=== PATIENT | male | born 1945 | race Caucasian/White ===

== ENCOUNTER 2021-09-15 10:06 | Outpatient (CLI) | payer MEDICARE ==
[2021-09-15] MEDS ORDERED: Iopamidol 370 76% 100 ML VIAL ONE (13:42)
== END 2021-09-15 10:07 | disposition home or self-care (01) ==
LOC: CT 10:06
PROVIDERS: ATTEND Urology
DX: C61 Malignant neoplasm of prostate (principal); K57.30 Diverticulosis of large intestine without perforation or abscess without bleeding; K40.20 Bilateral inguinal hernia, without obstruction or gangrene, not specified as recurrent; N13.2 Hydronephrosis with renal and ureteral calculous obstruction
CPT/HCPCS: 74178; 78306; 82565; A9503

== ENCOUNTER 2021-10-01 23:48 | Observation (INO) | payer MEDICARE, SELFPAY ==
[2021-10-02 00:36] LABS: #Eosinphils 0.2 thou/uL (0.0-0.7); #Lymphocytes 1.4 thou/uL (1.20-3.40); #Monocytes 0.4 thou/uL (0.11-0.59); #Neutrophils 4.2 thou/uL (1.40-6.50); %Basophils 0.6 % (0.0-1.0); %Eosinophils 2.5 % (0.0-10.0); %Lymphocytes 22.7 % (21.0-51.0); %Monocytes 6.6 % (0.0-10.0); %Neutrophils 67.6 % (42.0-75.0); Hemoglobin 13.2 g/dL (14.0-18.0); Mean Corpuscular HGB CONC 33.8 g/dL (32.0-36.0); Mean Corpuscular Hemoglobin 31.1 pg (27.0-31.0); Mean Platelet Volume 6.2 fL (7.4-10.4); Platelet Count 263 thou/uL (130-400); RBC Distribution Width 13.1 % (11.5-14.5); Red Blood Cell (RBC) Count 4.24 mill/uL (4.70-6.10); White Blood Cell (WBC) Count 6.2 thou/uL (4.8-10.8)
[2021-10-02 00:56] LABS: ALT (SGPT) 12 U/L (8-55); AST (SGOT) 16 U/L (5-34); Albumin 3.8 g/dL (3.4-4.8); Alkaline Phosphatase 82 U/L (40-110); Anion Gap 12 mmol/L (10-20); BUN (Urea Nitrogen) 14 mg/dL (8.4-25.7); Bilirubin, Total 0.4 mg/dL (0.2-1.2); CK (CPK) 55 U/L (30-200); Calc. Creatinine Clearance 0 mL/min (70-130); Calcium 9.5 mg/dL (7.8-10.44); Carbon Dioxide 27 mmol/L (23-31); Chloride 103 mmol/L (98-107); Globulin 2.8 g/dL (2.4-3.5); Glucose 109 mg/dL (83-110); Potassium 3.8 mmol/L (3.5-5.1); Protein, Total 6.6 g/dL (5.8-8.1); Sodium 138 mmol/L (136-145)
[2021-10-02] MEDS ORDERED: Aspirin Chewable 81 MG TAB ONE (01:22)
[2021-10-02] MEDS ORDERED: cloNIDine 0.1 MG TAB ONE (01:22)
[2021-10-02] MEDS ORDERED: Senokot S 8.6-50 MG TAB PO PRN (02:12)
[2021-10-02] MEDS ORDERED: Acetaminophen 325 MG TAB PO PRN (02:12)
[2021-10-02] MEDS ORDERED: Bisacodyl 5 MG TAB PO PRN (02:12)
[2021-10-02] MEDS ORDERED: Bisacodyl 10 MG SUPP PR PRN (02:12)
[2021-10-02] MEDS ORDERED: Acetaminophen 650 MG Suppository PR PRN (02:12)
[2021-10-02] MEDS ORDERED: Calcium Carbonate 500 MG ChewTAB PO PRN (02:12)
[2021-10-02 02:34] VITALS: BMI 27.7
[2021-10-02] MEDS ORDERED: Labetalol HCl 100 MG/20 ML VIAL SLOW IVP PRN (03:16)
[2021-10-02] MEDS ORDERED: hydrALAZINE 20 MG/ML VIAL SLOW IVP PRN (03:16)
[2021-10-02 04:36] LABS: #Lymphocytes 1.3 thou/uL (1.20-3.40); #Monocytes 0.7 thou/uL (0.11-0.59); #Neutrophils 6.9 thou/uL (1.40-6.50); %Basophils 0.2 % (0.0-1.0); %Eosinophils 0.5 % (0.0-10.0); %Lymphocytes 14.6 % (21.0-51.0); %Monocytes 7.3 % (0.0-10.0); %Neutrophils 77.4 % (42.0-75.0); Hemoglobin 12.8 g/dL (14.0-18.0); Mean Corpuscular HGB CONC 34.3 g/dL (32.0-36.0); Mean Corpuscular Hemoglobin 31.2 pg (27.0-31.0); Mean Platelet Volume 6.3 fL (7.4-10.4); Platelet Count 253 thou/uL (130-400); Red Blood Cell (RBC) Count 4.09 mill/uL (4.70-6.10)
[2021-10-02 04:49] LABS: Hemoglobin A1c 4.5 % (4.0-6.0)
[2021-10-02 04:51] LABS: Cardiac Risk 2.6 (Less than 4.5)
[2021-10-02 05:00] LABS: Troponin I 0.012 ng/mL (< 0.028)
[2021-10-02 07:34] VITALS: TEMP 97.9
[2021-10-02 08:20] LABS: Troponin I Less than 0.010 ng/mL (< 0.028)
[2021-10-02] MEDS ORDERED: Enoxaparin Sodium 40 MG/0.4 ML SYRINGE SC SCH (09:00)
[2021-10-02] MEDS ORDERED: ADENOSINE 60 MG/20 ML VIAL ONE (10:31)
[2021-10-02 13:12] VITALS: BP 110/66
[2021-10-02 17:14] LABS: SARS-CoV-2 PCR by NAA Not Detected (NotDetected)
[2021-10-02] MEDS ORDERED: AMOXICILLIN 875 MG PO SCH (21:00)
[2021-10-02] MEDS ORDERED: Amoxicillin/Potassium Clav 875 MG TAB PO SCH (21:00)
[2021-10-02] MEDS ORDERED: Lisinopril 10 MG TAB PO SCH (21:00)
[2021-10-02] MEDS ORDERED: Ferrous Sulfate 325 MG TAB PO SCH (21:00)
[2021-10-02] MEDS ORDERED: Tamsulosin HCl 0.4 MG CAP PO SCH (21:00)
[2021-10-02] MEDS ORDERED: Atorvastatin Calcium 10 MG TAB PO SCH (21:00)
[2021-10-03] MEDS ORDERED: Losartan 25 MG TAB PO SCH (21:00)
== END 2021-10-02 13:55 | disposition home or self-care (01) ==
LOC: ERS 23:48 → 2SW 10-02 01:35
PROVIDERS: ADMIT Emergency Medicine; ATTEND Emergency Medicine
DX: I20.0 Unstable angina (principal); N39.0 Urinary tract infection, site not specified; I10 Essential (primary) hypertension; C61 Malignant neoplasm of prostate; Z87.891 Personal history of nicotine dependence; Z66 Do not resuscitate; Z79.2 Long term (current) use of antibiotics; Z79.899 Other long term (current) drug therapy; Z20.822 Contact with and (suspected) exposure to COVID-19
CPT/HCPCS: 71045; 78452; 80061; 82550; 83036; 84484 ×2; 93005; 93017; 99285; A9500; U0003; U0005; 36415; 80053; 84443; 85025; G0378; J0153

== ENCOUNTER 2021-11-06 07:39 | Outpatient (CLI) | payer MEDICARE | END 2021-11-06 07:40 | disposition home or self-care (01) | LOC: ULT 07:39 | PROVIDERS: ATTEND Urology | DX: C61 Malignant neoplasm of prostate (principal); N13.39 Other hydronephrosis; N32.89 Other specified disorders of bladder | CPT/HCPCS: 76770 ==

== ENCOUNTER 2021-11-06 12:00 | Outpatient (CLI) | payer MEDICARE ==
[2021-11-06 13:34] LABS: Mean Corpuscular HGB CONC 32.4 g/dL (32.0-36.0); Mean Corpuscular Hemoglobin 29.5 pg (27.0-33.0); Mean Corpuscular Volume 91.1 fl (81.2-95.1); Platelet Count 257 10x3/uL (150-450); RBC Distribution Width 13.5 % (11.5-14.5); White Blood Cell (WBC) Count 7.3 10x3/uL (3.5-10.5)
[2021-11-06 13:49] LABS: INR-International Normal Ratio 0.9; Prothrombin Time 10.5 sec (9.5-12.1)
[2021-11-06 13:57] LABS: Anion Gap 15 mmol/L (10-20); BUN (Urea Nitrogen) 13 mg/dL (8.4-25.7); Calc. Creatinine Clearance 0 mL/min (70-130); Calcium 9.4 mg/dL (7.8-10.44); Carbon Dioxide 26 mmol/L (23-31); Chloride 104 mmol/L (98-107); Glucose 89 mg/dL (83-110); Sodium 141 mmol/L (136-145)
[2021-11-07 12:10] LABS: SARS-CoV-2 PCR by NAA Not Detected (NotDetected)
== END 2021-11-06 12:01 | disposition home or self-care (01) ==
LOC: LABBT 12:00
PROVIDERS: ATTEND Urology
DX: Z01.812 Encounter for preprocedural laboratory examination (principal); C61 Malignant neoplasm of prostate; R97.20 Elevated prostate specific antigen [PSA]; R35.0 Frequency of micturition; N40.1 Benign prostatic hyperplasia with lower urinary tract symptoms; K64.4 Residual hemorrhoidal skin tags; R63.4 Abnormal weight loss; R33.9 Retention of urine, unspecified; Q54.0 Hypospadias, balanic; K63.89 Other specified diseases of intestine; N13.39 Other hydronephrosis; Z20.822 Contact with and (suspected) exposure to COVID-19; Z87.891 Personal history of nicotine dependence; N32.89 Other specified disorders of bladder
CPT/HCPCS: 76770; 80048; 85027; 85610; 85730; U0003; U0005

== ENCOUNTER 2022-02-03 12:55 | Outpatient (CLI) | payer MEDICARE | END 2022-02-03 12:56 | disposition home or self-care (01) | LOC: BICULT 12:55 | PROVIDERS: ATTEND Urology | DX: C61 Malignant neoplasm of prostate (principal); N13.39 Other hydronephrosis; N32.89 Other specified disorders of bladder | CPT/HCPCS: 36415; 76770; 80048; 81003; 84153 ==

== ENCOUNTER 2022-02-22 11:23 | Observation (INO) | payer MEDICARE ==
[2022-02-22] MEDS ORDERED: Metoprolol Tartrate 5 MG/5 ML VIAL ONE (12:31)
[2022-02-22] MEDS ORDERED: Nitroglycerin 2% Ointment 1 INCH/1 GM Packet ONE ×2 (12:31→15:29)
[2022-02-22] MEDS ORDERED: Aspirin Chewable 81 MG TAB ONE (12:31)
[2022-02-22] MEDS ORDERED: Nitroglycerin 0.4 MG TAB 1 EACH ONE (12:31)
[2022-02-22 12:37] LABS: #Lymphocytes 1.1 thou/uL (1.20-3.40); #Neutrophils 7.3 thou/uL (1.40-6.50); %Eosinophils 0.1 % (0.0-10.0); %Lymphocytes 11.5 % (21.0-51.0); %Monocytes 10.6 % (0.0-10.0); %Neutrophils 77.8 % (42.0-75.0); Hemoglobin 15.3 g/dL (14.0-18.0); Mean Corpuscular HGB CONC 33.8 g/dL (32.0-36.0); Mean Corpuscular Hemoglobin 32.2 pg (27.0-31.0); Mean Corpuscular Volume 95.2 fL (78.0-98.0); Mean Platelet Volume 6.4 fL (7.4-10.4); Platelet Count 203 thou/uL (130-400); RBC Distribution Width 11.9 % (11.5-14.5); Red Blood Cell (RBC) Count 4.76 mill/uL (4.70-6.10); White Blood Cell (WBC) Count 9.4 thou/uL (4.8-10.8)
[2022-02-22 13:07] LABS: ALT (SGPT) 9 U/L (8-55); AST (SGOT) 12 U/L (5-34); Albumin 4.4 g/dL (3.4-4.8); Alkaline Phosphatase 85 U/L (40-110); Anion Gap 13 mmol/L (10-20); BUN (Urea Nitrogen) 10 mg/dL (8.4-25.7); Bilirubin, Total 1.4 mg/dL (0.2-1.2); Calc. Creatinine Clearance 0 mL/min (70-130); Calcium 10.1 mg/dL (7.8-10.44); Carbon Dioxide 30 mmol/L (23-31); Chloride 100 mmol/L (98-107); Globulin 3.4 g/dL (2.4-3.5); Glucose 113 mg/dL (83-110); Lipase 8 U/L (8-78); Potassium 4.3 mmol/L (3.5-5.1); Protein, Total 7.8 g/dL (5.8-8.1); Sodium 139 mmol/L (136-145)
[2022-02-22] MEDS ORDERED: hydrALAZINE 20 MG/ML VIAL ONE (14:12)
[2022-02-22] MEDS ORDERED: Acetaminophen 325 MG TAB PO PRN (15:11)
[2022-02-22] MEDS ORDERED: Ondansetron ODT 4 MG TAB PO PRN (15:11)
[2022-02-22] MEDS ORDERED: hydrALAZINE 20 MG/ML VIAL SLOW IVP PRN (15:19)
[2022-02-22 15:46] LABS: Troponin I Less than 0.010 ng/mL (< 0.028)
[2022-02-22 18:36] LABS: Troponin I Less than 0.010 ng/mL (< 0.028)
[2022-02-22 19:40] VITALS: BMI 28.6
[2022-02-22] MEDS ORDERED: Hydrochlorothiazide 25 MG TAB PO SCH (19:45)
[2022-02-22] MEDS: Tamsulosin HCl 0.4 MG CAP PO SCH (20:28)
[2022-02-22] MEDS ORDERED: Losartan 25 MG TAB PO SCH ×3 (21:00)
[2022-02-22] MEDS ORDERED: Amlodipine 5 MG TAB PO SCH (21:00)
[2022-02-22] MEDS ORDERED: Amlodipine 10 MG TAB PO SCH (21:00)
[2022-02-23 05:32] LABS: #Lymphocytes 1.2 thou/uL (1.20-3.40); #Monocytes 0.8 thou/uL (0.11-0.59); #Neutrophils 5.9 thou/uL (1.40-6.50); %Basophils 0.3 % (0.0-1.0); %Eosinophils 0.4 % (0.0-10.0); %Lymphocytes 15.5 % (21.0-51.0); %Monocytes 9.8 % (0.0-10.0); Hemoglobin 14.6 g/dL (14.0-18.0); Mean Corpuscular HGB CONC 34.3 g/dL (32.0-36.0); Mean Corpuscular Hemoglobin 32.9 pg (27.0-31.0); Mean Corpuscular Volume 96.1 fL (78.0-98.0); Mean Platelet Volume 6.6 fL (7.4-10.4); Platelet Count 193 thou/uL (130-400); RBC Distribution Width 12.1 % (11.5-14.5); Red Blood Cell (RBC) Count 4.43 mill/uL (4.70-6.10)
[2022-02-23 05:56] LABS: ALT (SGPT) 8 U/L (8-55); AST (SGOT) 13 U/L (5-34); Alkaline Phosphatase 77 U/L (40-110); Anion Gap 15 mmol/L (10-20); BUN (Urea Nitrogen) 9 mg/dL (8.4-25.7); Bilirubin, Total 1.3 mg/dL (0.2-1.2); Calc. Creatinine Clearance 82 mL/min (70-130); Calcium 9.8 mg/dL (7.8-10.44); Carbon Dioxide 25 mmol/L (23-31); Chloride 101 mmol/L (98-107); Globulin 3.4 g/dL (2.4-3.5); Glucose 110 mg/dL (83-110); Potassium 3.7 mmol/L (3.5-5.1); Protein, Total 7.4 g/dL (5.8-8.1); Sodium 137 mmol/L (136-145)
[2022-02-23] MEDS: Tamsulosin HCl 0.4 MG CAP PO SCH (08:56)
[2022-02-23] MEDS ORDERED: Relugolix [Orgovyx] 120 MG Tablet PO SCH (09:00)
[2022-02-23] MEDS ORDERED: Atorvastatin Calcium 10 MG TAB PO SCH (09:00)
[2022-02-23] MEDS ORDERED: Ferrous Sulfate 325 MG TAB PO SCH (09:00)
[2022-02-23] MEDS ORDERED: Bicalutamide 50 MG TAB PO SCH (09:00)
[2022-02-23] MEDS ORDERED: XTANDI 160 MG FS SCH (09:00)
[2022-02-23 11:16] VITALS: BP 137/74; TEMP 97.7
[2022-02-23 11:38] LABS: SARS-CoV-2 PCR by NAA Not Detected (NotDetected)
[2022-02-23] MEDS ORDERED: Amlodipine 10 MG TAB PO SCH (21:00)
[2022-02-23] MEDS ORDERED: Losartan 25 MG TAB PO SCH (21:00)
== END 2022-02-23 14:33 | disposition home or self-care (01) ==
LOC: ERS 11:23 → ERHOLD 13:51 → 2SW 17:50
PROVIDERS: ADMIT Family Medicine; ATTEND Family Medicine
DX: I16.0 Hypertensive urgency (principal); R07.81 Pleurodynia; I10 Essential (primary) hypertension; C61 Malignant neoplasm of prostate; E78.5 Hyperlipidemia, unspecified; H91.91 Unspecified hearing loss, right ear; Z66 Do not resuscitate; Z87.891 Personal history of nicotine dependence; Z79.899 Other long term (current) drug therapy
CPT/HCPCS: 71045; 80053 ×2; 83690; 83880; 84484 ×2; 85025 ×2; 93005; 96374; 96375; 99285; U0003; U0005; 36415; G0378; J0360

== ENCOUNTER 2022-03-19 09:26 | Outpatient (CLI) | payer MEDICARE | END 2022-03-19 09:27 | disposition home or self-care (01) | LOC: NM 09:26 | PROVIDERS: ATTEND Internal Medicine Hematology & Oncology | DX: C61 Malignant neoplasm of prostate (principal); C19 Malignant neoplasm of rectosigmoid junction; D50.0 Iron deficiency anemia secondary to blood loss (chronic); C79.51 Secondary malignant neoplasm of bone | CPT/HCPCS: 78306; A9503 ==

== ENCOUNTER 2022-09-08 08:50 | Outpatient (CLI) | payer MEDICARE | END 2022-09-08 08:51 | disposition home or self-care (01) | LOC: CT 08:50 | PROVIDERS: ATTEND Urology | DX: C61 Malignant neoplasm of prostate (principal); N13.39 Other hydronephrosis | CPT/HCPCS: 74178 ==

== ENCOUNTER 2024-03-07 09:39 | Outpatient (CLI) | payer MEDICARE | END 2024-03-07 09:40 | disposition home or self-care (01) | LOC: ULT 09:39 | PROVIDERS: ATTEND Urology | DX: R97.20 Elevated prostate specific antigen [PSA] (principal); C61 Malignant neoplasm of prostate; N13.39 Other hydronephrosis; R35.0 Frequency of micturition; N32.89 Other specified disorders of bladder | CPT/HCPCS: 76770 ==

== ENCOUNTER 2024-09-25 15:42 | Outpatient (CLI) | payer MEDICARE | END 2024-09-25 15:43 | disposition home or self-care (01) | LOC: BICULT 15:42 | PROVIDERS: ATTEND Urology | DX: N13.39 Other hydronephrosis (principal) | CPT/HCPCS: 76770 ==

== ENCOUNTER 2025-05-17 12:41 | Emergency (ER) | payer MEDICARE ==
[2025-05-17] MEDS ORDERED: Acetaminophen 500 MG TAB ONE (14:20)
== END 2025-05-17 15:59 | disposition home or self-care (01) ==
LOC: ERS 12:41
DX: M25.552 Pain in left hip (principal); I10 Essential (primary) hypertension; Z87.891 Personal history of nicotine dependence
CPT/HCPCS: 72170

== ENCOUNTER 2025-05-22 11:19 | Emergency (ER) | payer MEDICARE | END 2025-05-22 11:59 | disposition home or self-care (01) | LOC: ERS 11:19 | DX: M25.552 Pain in left hip (principal); I10 Essential (primary) hypertension; Z79.899 Other long term (current) drug therapy; Z87.891 Personal history of nicotine dependence | CPT/HCPCS: 99282 ==